=== PATIENT | female | born 1955 | race Asian ===

== ENCOUNTER 2020-07-06 11:51 | Inpatient (IN) | payer MEDICAID, SELFPAY ==
[2020-07-06] VITALS (19 sets, daily range): BP systolic 112–160; BP diastolic 72–120; PULSE 114–149; RESP 23–38; TEMP 35.9–36.6; O2SAT 88–100; BMI 27.7
--- NOTE | ~2020-07-06 | XR_ITS ---
EXAMINATION: XR chest 1V portable INDICATION: Shortness of breath, congestive heart failure TECHNIQUE: Portable AP chest at 0601 hours COMPARISON: 07/06/2020 FINDINGS: A diffuse interstitial pattern persists but has improved. A small right pleural effusion velazquez s also resolved. Cardiomegaly is noted. There is no pneumothorax. IMPRESSION: 1. Cardiomegaly with improving pulmonary edema. Reviewed, dictated and finalized at location A. SIONS INSPECTOR
--- NOTE | ~2020-07-06 | XR_ITS ---
EXAMINATION: XR chest 1V portable INDICATION: Shortness of breath TECHNIQUE: Portable AP chest at 1215 hours COMPARISON: None available FINDINGS: There are patchy opacities throughout all lung zones. A small right pleural effusion is pre sent. The heart size is upper limits of normal for technique. No pneumothorax is identified. IMPRESSION: 1. Diffuse lung disease, consistent with pneumonia and/or atelectasis and/or pulmonary edema. 2. Small right pleural effusion. Reviewed, dictated and finalized at location A. OFABRICATION ENGINEER MANAGER IMPRESSION: 1. Diffuse lung disease, consistent with pneumonia and/or atelectasis and/or pu lmonary edema. 2. Small right pleural effusion.
--- NOTE | ~2020-07-06 | CT_ITS ---
EXAMINATION: CTA chest PE protocol DATE: 07/06/2020 13:02 INDICATION: Shortness of breath TECHNIQUE: Computed tomography (CT) pulmonary angiogram of the chest was performed with 100 mL Omnipa que-350 intravenous contrast. Additional 3D reconstructions utilizing coronal maximum intensity proje ction (MIP) were performed. Automated exposure control and iterative reconstruction technique were em ployed. The dose-length product was 236.92 mGy-cm. COMPARISON: None FINDINGS: Excellent contrast opacification of the pulmonary arteries. There is moderate streak artifact from de nse contrast in the superior vena cava and right atrium. Moderate diffuse motion artifact. Overall th is moderately decreases sensitivity and specificity in the subsegmental pulmonary arteries. No defini tive pulmonary embolism. Small to moderate right and very small left pleural effusions. There are sca ttered groundglass opacities throughout both lungs, some smooth septal line thickening with periphera l and apical predominance most consistent with mild pulmonary edema. Persistent compressive atelectas is in the dependent lower lobes, right greater than left and anteroinferior aspects of the lingula an d left lower and right middle lobes. Mild cardiomegaly. Atherosclerotic coronary artery calcific a cy st along the left anterior descending coronary artery. No pericardial effusion. No pathologically enl arged thoracic lymphadenopathy. Mild thoracic spondylosis with bridging osteophytes at multiple level s consistent with diffuse idiopathic skeletal hyperostosis (DISH). IMPRESSION: 1. No pulmonary embolism although sensitivity and specificity are moderately decreased in the subsegm ental pulmonary arteries due to some streak artifact and extensive motion artifact. 2. Likely congestive heart failure with cardiomegaly, mild pulmonary edema and small to moderate righ t and very small left pleural effusions. Differential includes less likely pneumonia. Reviewed, dictated and finalized at location A. ICAL FORCEPS FABRICATOR IMPRESSION: 1. No pulmonary embolism although sensitivity and specificity are moderately de creased in the subsegmental pulmonary arteries due to some streak artifact and extensive motion artifact. 2. Likely congestive heart failure with cardiomegaly, mild pulmonary edema and small to moderate right and very small left pleural effusions. Differential inc ludes less likely pneumonia.
--- NOTE | 2020-07-06 11:58 | ECG_ITS ---
Measurements Intervals [place] Rate: 146 P: 69 DC: 121 QRS: -28 QRSD: 101 T: 104 QT: 326 QTc: 509 Interpretive Statements SINUS TACHYCARDIA, POSSIBLE ATRIAL FLUTTER DELAYED PRECORDIAL R/S TRANSITION BORDERLINE ST-T WAVE ABNORMALITY- DIFFUSE LEADS BASELINE ARTIFACT- II, III, AVF, V4-V5 ABNORMAL ECG Electronically Signed On 07-06-2020 13:11:58 CREW FOREMAN by Sukhwinder Johnson D.O.
[2020-07-06 12:24] LABS: Basophils Absolute Auto 0.1 K/mm3 (0.0-0.1); Basophils Percent Auto 0.6 % (0.2-1.2); Eosinophils Absolute Auto 0.2 K/mm3 (0-0.3); Eosinophils Percent Auto 2.3 % (0-4.4); Hematocrit 41.3 % (37.0-47.0); Hemoglobin 13.3 g/dL (12.0-15.0); Immature Granulocyte Absolute 0.03 K/mm3 (0.00-0.031); Immature Granulocyte Percent A 0.3 % (0-0.5); Lymphocytes Absolute Auto 3.18 K/mm3 (0.9-3.2); Lymphocytes Percent Auto 30.5 % (18.3-44.2); Mean Corpuscular HGB Conc 32.2 g/dl (32-36); Mean Corpuscular Hemoglobin 28.7 pg (26-34); Mean Corpuscular Volume 89.2 fl (80-100); Mean Platelet Volume 10.9 fl (7.4-10.4); Monocytes Absolute Auto 0.6 K/mm3 (0.1-0.6); Monocytes Percent Auto 5.9 % (2.6-8.5); Neutrophils Absolute Auto 6.3 K/mm3 (1.3-6.7); Neutrophils Percent Auto 60.4 % (45.5-73.1); Platelet Count Result 411 k/mm3 (150-375); Red Blood Count 4.63 M/mm3 (4.2-5.4); Red Cell Distribution Width 12.5 % (11.5-14.5); White Blood Count 10.4 K/mm3 (4.5-10.0)
[2020-07-06] MEDS: SODIUM CHLORIDE 0.9% IV 1,000 ML 999 ML IV CONT (12:24)
[2020-07-06 12:28] LABS: Alveolar/Arterial O2 Gradient 45.2 mmHg; Base Excess ABG -3.1 mEq/l (+/-2.0); Carboxyhemoglobin 0.9 % THb (0-2.0); Fractional Inspired Oxygen 21 %; Methemoglobin ABG 0.3 %THb (0-1.5); Oxygen Content ABG 17.1 %vol (16.0-22.0); Oxygen Saturation ABG 88.7 % (95.0-100.0); Oxyhemoglobin 87.2 % THb (90.0-100.0); PCO2 ABG 39.7 mmHg (35.0-45.0); PO2 FiO2 Ratio Arterial Blood 2.71 %; Reduced Hemoglobin 11.6 %THb (0-5.0); pH ABG 7.361 (7.350-7.450)
[2020-07-06 12:29] LABS: Device ROOM AIR; Modified Allen's Test Pass; Site Drawn LEFT RADIAL
--- NOTE | 2020-07-06 12:34 | PC.NURSE ---
Addendum entered by Griselda Henderson RN 07/06/20 14:52: patients home phone number is [phone] per Gabby, family friend. Original Note: patient's hoe phone number to contact: [phone] - Gabby, family friend
[2020-07-06 12:35] LABS: Prothrombin Time 13.8 Seconds (11.1-14.7)
[2020-07-06 12:36] LABS: Partial Thromboplastin Time 32.8 SECONDS (22.3-36.8)
[2020-07-06 12:37] LABS: Anion Gap 8 mmol/L (8-16); Blood Urea Nitrogen 14 mg/dL (7-17); Carbon Dioxide 27 mmol/L (22-30); Chloride 105 mmol/L (98-107); Estimated CRCL calculation 57 ml/min; Estimated Glomerular Filt Rate > 60; Glucose 119 mg/dL (65-105); Potassium 3.7 mmol/L (3.4-5.0); Sodium 140 mmol/L (137-145)
[2020-07-06 12:38] LABS: D Dimer 0.73 ug/mL (<0.48)
[2020-07-06 12:38] LABS: Lactic Acid Reflex 2.4 mmol/L (0.7-2.1)
--- NOTE | 2020-07-06 12:48 | PC.NURSE ---
Pt taken to CT scan on bypap and monitors.
--- NOTE | 2020-07-06 13:06 | ED.GENADULT ---
HPI - General Adult General Chief complaint: Shortness of Breath/Dyspnea Stated complaint: cough, sob Time Seen by Provider: 07/06/20 12:04 Source: patient and family Mode of arrival: ambulatory Limitations: no limitations History of Present Illness HPI narrative: Patient is a 65-year-old female who presents to emergency department with shortness of breath and difficulty breathing noting that she has had a slight cough for 5 days and some congestion patient notes a few days prior to the onset of her symptoms she had received her first Covid vaccine patient on arrival presents uncomfortable state with respiratory distress patient is tachypneic and having difficulty getting deep breaths patient denies similar occurrence in the past sick contacts patient denies any history of cardiopulmonary disease denies tobacco abuse or secondhand exposure patient has not taken anything other than [id number] medications with minimal improvement Related Data Home Medications Medication Instructions Recorded Confirmed No Home Medications 07/06/20 07/06/20 Allergies Allergy/AdvReac Type Severity Reaction Status Date / Time No Known Allergies Allergy Verified 07/06/20 12:03 Review of Systems Review of Systems: All systems reviewed & are unremarkable except as noted in HPI and below PMFSH Social History Social History Smoking status: Never smoker Exam Narrative: Exam Narrative: GENERAL: Ill-appearing, well-nourished, and in no acute distress. HEAD: Normocephalic, atraumatic. EYES: PERRLA and EOMI. ENT: Nares clear, no rhinorrhea or epistaxis. Mucous membranes moist. NECK: Supple. No adenopathy or masses. No carotid bruits or JVD CHEST: Diminished on auscultation. Respiratory distress. Crackles in the lung bases diminished in the upper yao HEART: Tachycardic rate and regular rhythm. No murmur heard. Normal peripheral pulses. ABDOMEN: Soft, nontender, nondistended EXTREMITIES: Normal range of motion. No edema. SKIN: Warm, dry, no rash. NEURO: No focal deficits. Alert and oriented x3. Cranial nerves II through XII grossly intact PSYCH: Normal mood and affect. Course Course Emergency Course: Patient evaluated in the emergency department is felt that the findings are likely congestive heart failure in nature given the cardiomegaly and congestive findings patient will be placed into the hospitalist service in the IMU. Patient has had improvement on BiPAP and will be left on BiPAP at this time. Patient was given Lasix in the emergency department. Patient agrees with this plan and is resting comfortably is noted no distress with improvement Consultations Consultation #1: Discussed case with hospitalist Deborah who has agreed to accept the patient Date: 07/06/20 Time: 13:55 Vital Signs Vital signs: Vital Signs Temperature 97.9 F 07/06/20 11:59 Pulse Rate 147 H 07/06/20 11:59 Respiratory Rate 38 H 07/06/20 11:59 Blood Pressure 160/113 H 07/06/20 11:59 Pulse Oximetry 98 07/06/20 11:59 Temperature 97.9 F 07/06/20 11:59 Pulse Rate 127 H 07/06/20 13:51 Respiratory Rate 30 H 07/06/20 13:51 Blood Pressure 129/84 07/06/20 13:51 Pulse Oximetry 99 07/06/20 13:51 Medical Decision Making Vital Signs Vital Signs: Vital Signs Temperature 97.9 F 07/06/20 11:59 Pulse Rate 147 H 07/06/20 11:59 Respiratory Rate 38 H 07/06/20 11:59 Blood Pressure 160/113 H 07/06/20 11:59 Pulse Oximetry 98 07/06/20 11:59 Temperature 97.9 F 07/06/20 11:59 Pulse Rate 127 H 07/06/20 13:51 Respiratory Rate 30 H 07/06/20 13:51 Blood Pressure 129/84 07/06/20 13:51 Pulse Oximetry 99 07/06/20 13:51 Lab Data Result diagrams: 07/06/20 12:05 07/06/20 12:05 Labs: Lab Results 07/06/20 07/06/20 07/06/20 Range/Units 12:05 12:05 12:05 WBC 10.4 H (4.5-10.0) K/mm3 RBC 4.63 (4.2-5.4) M/mm3 Hgb 13.3
[2020-07-06 13:16] LABS: Troponin I < 0.012 ng/mL (0.000-0.034)
[2020-07-06] MEDS: FUROSEMIDE INJ 40 MG/4 ML VIAL IV PUSH (13:51)
--- NOTE | 2020-07-06 14:59 | PC.NURSE ---
Aries Chapin from lab here to draw 2nd set of Blood cultures - multiple staff, 4, have attempted, unsuccessful
[2020-07-06 15:19] LABS: Reflex Lactic Acid Yes or No Add Lactic
[2020-07-06 15:36] LABS: Add Urine Microscopic? YES; Appearance Urine Clear (Clear); Bilirubin Urine Negative (Negative); Blood Urine 1+ (Negative); Color Urine Colorless (Yellow); Glucose Urine UA Negative (Negative); Ketones Urine Negative (Negative); Leukocyte Esterase Ur Negative LEU/UL (Negative); Mucus Urine Rare /lpf; Nitrate Urine Negative (Negative); Protein Urine Negative (Negative); Squamous Epithelial Cell Urine Occasional /hpf (Few); Urobilinogen Urine Negative mg/dL (<2.0); WBC Urine 0-3 /hpf
[2020-07-06 15:41] LABS: Troponin I 0.013 ng/mL (0.000-0.034)
--- NOTE | 2020-07-06 17:40 | ADMGEN ---
This patient, Melecio Thao, was admitted to Intensive Care Unit-4. Patient/family oriented to hospital policies and general routines including ID bracelet, bed and alarms, visiting hours, pain management, procedures, bathroom and other care routines, personal items, smoking policy, room service/diet, and visiting hours. Information on how to activate the Rapid Response Team has been discussed. Patient/Family are encouraged to report perceived risks to care and to ask questions if they do not understand what they are told or what they should do.
[2020-07-06 19:41] LABS: SARS-CoV-2 RNA PCR Negative
[2020-07-06 20:31] LABS: Troponin I 0.017 ng/mL (0.000-0.034)
--- NOTE | 2020-07-06 22:14 | ECG_ITS ---
Measurements Intervals [place] Rate: 125 P: 85 DC: 146 QRS: -13 QRSD: 105 T: 153 QT: 336 QTc: 485 Interpretive Statements SINUS TACHYCARDIA DELAYED PRECORDIAL R/S TRANSITION NONSPECIFIC T-WAVE ABNORMALITY- DIFFUSE LEADS ABNORMAL ECG Electronically Signed On 07-07-2020 7:13:51 AUDIO VIDEO MECHANIC by Sukhwinder Johnson D.O.
--- NOTE | 2020-07-06 22:18 | PM.IMHP ---
H&P: HPI History of Present Illness Date/Time: 07/06/20 22:18 Chief Complaint: shortness of breath over the past few days Narrative: This is a pleasant 65 year old female who is only known to have hyperlipidemia and hasn't seen any physicians in several years and now presented to the ER today with a complaint of increased shortness of breath for the past 5 days. She has also had a mild nonproductive cough. Yesterday she experienced midsternal chest tightness but today she hasn't had any chest pain. The patient denies any fevers, chills, abdominal pain, dysuria, hematuria, diarrhea, nausea, vomiting, or rectal bleeding. She also denies any LE swelling. The patient was evaluated in the ER today and found to be COVID-19 negative. The patient was found to be hypoxic with increased work of breathing in the ER and was initiated on Bipap. Lactic acid was elevated at 2.4. CTA chest was performed which demonstrated mild pulmonary edema. On my encounter with the patient she states she is feeling much better now. Review of Systems Review of Systems: All systems reviewed & are unremarkable except as noted in HPI and below PMFSH Past Medical History Medical History (Updated 07/07/20 @ 06:06 by Taco Mckenna MD) Hyperlipidemia Social History Social History Smoking status: Never smoker Second hand tobacco smoke exposure: No Alcohol intake: never Substance use: never Substance use type: does not use Gender identity (if verbalized by the patient): Female Spiritual care concerns: No Comments Past surgical and family medical histories are reviewed and are noncontributory. Meds Home Medications and Allergies Home Medications Medication Instructions Recorded Confirmed Type No Home Medications 07/06/20 07/06/20 History Allergies Allergy/AdvReac Type Severity Reaction Status Date / Time No Known Allergies Allergy Verified 07/06/20 12:03 Vital Signs Vital Signs - 24 hr 07/06/20 11:59 07/06/20 12:09 07/06/20 12:15 Temperature 36.6 C Pulse Rate 147 H 146 H 149 H Respiratory Rate 38 H 38 H 37 H Blood Pressure 160/113 H Pulse Oximetry 98 95 95 07/06/20 12:21 07/06/20 12:27 07/06/20 12:41 Temperature Pulse Rate 149 H 141 H Respiratory Rate 36 H 33 H Blood Pressure 152/120 H Pulse Oximetry 91 88 L 100 07/06/20 13:15 07/06/20 13:51 07/06/20 14:40 Temperature Pulse Rate 135 H 127 H 123 H Respiratory Rate 28 H 30 H 28 H Blood Pressure 156/98 H 129/84 129/102 H Pulse Oximetry 99 99 97 07/06/20 15:30 07/06/20 16:30 07/06/20 17:23 Temperature Pulse Rate 126 H 117 H 131 H Respiratory Rate 26 H 28 H 33 H Blood Pressure 118/77 113/74 Pulse Oximetry 98 99 100 07/06/20 17:33 07/06/20 17:36 07/06/20 18:00 Temperature 36.4 C Pulse Rate 125 H 125 H 114 H Respiratory Rate 25 H 23 H Blood Pressure 125/86 123/77 Pulse Oximetry 100 95 07/06/20 20:00 07/06/20 21:24 07/06/20 21:45 Temperature 35.9 C L Pulse Rate 123 H 128 H Respiratory Rate 25 H 28 H Blood Pressure 120/95 H Pulse Oximetry 100 100 99 Exam Const: General: cooperative, alert, awake and ill appearing Nutritional Appearance: overweight Orientation/consciousness: patient oriented x3 HENMT: Head: normal to inspection General nose exam: Normal external nose present Face and sinus: normal facial exam Mouth: Yes Normal oral and palatal mucosa present and Yes oropharynx normal Eyes: Pupils: Equal, round and reactive pupils present EOM: EOMs intact bilaterally Neck: Neck: supple and no JVD Thyroid: thyroid normal Lymphatic: lymphadenopathy not noted Resp: Effort & Inspection: tachypneic Auscultation: crackles bilateral and diffuse and diminished lung sounds Cardio: Rate: tachycardic Rhythm: regular rhythm Heart sounds: no murmurs GI: Inspection: normal to inspection Auscultation: normal bowel sounds Skin: General skin exam: normal
[2020-07-07] VITALS (14 sets, daily range): BP systolic 92–122; BP diastolic 64–83; PULSE 108–140; RESP 20–32; TEMP 35.7–36.8; O2SAT 96–100
[2020-07-07 04:45] LABS: Basophils Percent Auto 0.5 % (0.2-1.2); Eosinophils Absolute Auto 0.3 K/mm3 (0-0.3); Hematocrit 38.7 % (37.0-47.0); Hemoglobin 12.6 g/dL (12.0-15.0); Immature Granulocyte Absolute 0.02 K/mm3 (0.00-0.031); Immature Granulocyte Percent A 0.2 % (0-0.5); Lymphocytes Absolute Auto 2.63 K/mm3 (0.9-3.2); Lymphocytes Percent Auto 30.3 % (18.3-44.2); Mean Corpuscular HGB Conc 32.6 g/dl (32-36); Mean Platelet Volume 10.7 fl (7.4-10.4); Monocytes Absolute Auto 0.8 K/mm3 (0.1-0.6); Monocytes Percent Auto 9.1 % (2.6-8.5); Neutrophils Absolute Auto 4.9 K/mm3 (1.3-6.7); Neutrophils Percent Auto 56.9 % (45.5-73.1); Platelet Count Result 310 k/mm3 (150-375); Red Blood Count 4.35 M/mm3 (4.2-5.4); Red Cell Distribution Width 12.5 % (11.5-14.5); White Blood Count 8.7 K/mm3 (4.5-10.0)
[2020-07-07 05:01] LABS: Anion Gap 7 mmol/L (8-16); Blood Urea Nitrogen 14 mg/dL (7-17); Carbon Dioxide 29 mmol/L (22-30); Chloride 106 mmol/L (98-107); Estimated CRCL calculation 57 ml/min; Estimated Glomerular Filt Rate > 60; Glucose 95 mg/dL (65-105); Potassium 3.5 mmol/L (3.4-5.0); Sodium 142 mmol/L (137-145)
--- NOTE | 2020-07-07 06:00 | ECHO_ITS ---
Patient Info Name: Melecio Thao Age: 65 years : 1955 Gender: Female Ht: 60 in Wt: 140 lbs BSA: 1.66 m2 HR: 132 bpm BP: 109 / 83 mmHg Heart Rhythm: Tachycardia Technical Quality: Good Exam Date: 07/07/2020 10:13 AM Exam Location: [facility] Patient Status: Outpatient Admit Date: 07/06/2020 Staff Ordering Physician: Tone Lawrence PA-C [place] Guide: Lai Davila RDCS, RT Attending Provider: Kenneth Dykes MD Referring Physician: Matt Jett MD; Exam Type: CA echo doppler color flow Study Info Indications I50.9 - Heart failure, unspecified Complete two-dimensional, color flow and Doppler transthoracic echocardiogram is performed. Strain analysis performed. Summary 1. Complete two-dimensional, color flow and Doppler transthoracic echocardiogram is performed. 2. Strain analysis performed. 3. Left ventricular chamber dimension is mildly enlarged. 4. Left ventricular systolic function is severely reduced, estimated at 15-20%. 5. There is mildly increased left ventricular wall thickness. 6. The left ventricular diastolic function is abnormal. 7. Global longitudinal strain is abnormal at -7 %. 8. Left atrial chamber dimension is moderately enlarged. 9. There is moderate aortic valve stenosis with a peak velocity of 286 cm/s, mean gradient of 20 mmHg, and aortic valve area of 1.2 cm2. 10. There is moderate aortic valve calcification. 11. There is moderate mitral valve regurgitation. 12. There is mild tricuspid valve regurgitation. Left Ventricle Left ventricular chamber dimension is mildly enlarged. Left ventricular systolic function is severely reduced, estimated at 15-20%. There is mildly increased left ventricular wall thickness. The left ventricular diastolic function is abnormal. Global longitudinal strain is abnormal at -7 %. Right Ventricle Right ventricular chamber dimension is normal. Right ventricular systolic function is normal. Left Atria Left atrial chamber dimension is moderately enlarged. Right Atria Right atrial chamber dimension is normal. Atrial Septum Intact interatrial septum visualized by color flow imaging. Aortic Valve The aortic valve is trileaflet. There is moderate aortic valve stenosis with a peak velocity of 286 cm/s, mean gradient of 20 mmHg, and aortic valve area of 1.2 cm2. There is trace aortic valve regurgitation. There is moderate aortic valve calcification. Pulmonic Valve The pulmonic valve is normal. There is no pulmonic valve stenosis. There is trace pulmonic regurgitation. Mitral Valve The mitral valve has thickened leaflets. There is no mitral valve stenosis. There is moderate mitral valve regurgitation. Tricuspid Valve The tricuspid valve leaflets are normal. There is no significant tricuspid valve stenosis. There is mild tricuspid valve regurgitation. Pericardium/Pleural The pericardium appears normal. There is no pericardial effusion. Inferior Vena Cava Normal inferior vena cava with >50% collapse upon inspiration consistent with normal right atrial pressure, 5 mmHg. Aorta The aortic root size at the sinus of Valsalva is normal. The prox ascending aorta size is normal. Left Ventricular Outflow Tract Name Value Normal LVOT 2D
[2020-07-07] MEDS: FUROSEMIDE INJ 40 MG/4 ML VIAL IV PUSH (08:44)
[2020-07-07] MEDS: ENOXAPARIN 40 MG/0.4 ML SYRINGE SUB-Q (08:44)
--- NOTE | 2020-07-07 09:30 | PC.NURSE ---
Reviewed plan of care with patient. Patient stated ok to talk to Mona, patient's next of kin.
[2020-07-07] MEDS: POTASSIUM CHLORIDE 20 MEQ TABLET 40 MEQ PO (09:47)
--- NOTE | 2020-07-07 15:52 | PM.IMPN ---
Progress Note: A&P Assessment and Plan (1) Acute respiratory failure with hypoxemia: Code(s): J96.01 - Acute respiratory failure with hypoxia Status: Acute Assessment and Plan: The patient has been initiated on Bipap in the ER. Admit to IMU. Wean off of Bipap when possible. Continue oxygen supplementation to maintain pulse ox>95%. Acute respiratory failure appears to be secondary to acute CHF exacerbation. Continue treatment for acute CHF. RT assess and treat. 07/07/20 15:52 Patient is 65-year-old female who has not seen the physician and several year presented to emergency department with a complaint of shortness of breath and hypoxic patient was placed on BiPAP, CT of the chest showed no pulmonary emboli but showed congestive heart failure with cardiomegaly, patient was diuresed with IV Lasix, currently patient states feeling much better she is off BiPAP, on nasal cannula 4 L oxygen, cardiac echo showed severe systolic dysfunction with ejection fraction of 20% unclear ischemic or nonischemic cardiomyopathy, will consult radiological metallurgist further recommendation (2) Congestive heart failure: Qualifiers: Heart failure chronicity: acute Heart failure type: unspecified Qualified Code(s): I50.9 - Heart failure, unspecified Code(s): I50.9 - Heart failure, unspecified Status: Acute Assessment and Plan: Newly diagnosed CHF. sodium prudent, fluid restricted diet. Is and Os, daily weights. CHF teaching. Continue IV lasix. Monitor urine output. TSH w/ reflex T4, Echocardiogram in am. (3) Sinus tachycardia: Code(s): R00.0 - Tachycardia, unspecified Status: Acute Assessment and Plan: Likely compensatory from acute respiratory failure. We will continue to monitor on telemetry. We will consider rate controlling medications if the patient sustains HR >120 bpm as this may lead to worsening pulmonary edema. (4) Elevated lactic acid level: Code(s): R79.89 - Other specified abnormal findings of blood chemistry Status: Acute Assessment and Plan: Likely secondary to hypoperfusion from acute CHF. Check reflex lactic acid. monitor acid-base status. (5) Hyperlipidemia: Qualifiers: Hyperlipidemia type: unspecified Qualified Code(s): E78.5 - Hyperlipidemia, unspecified Code(s): E78.5 - Hyperlipidemia, unspecified Status: Chronic Assessment and Plan: Continue fish oil. Subjective Date/time seen: 07/07/20 15:52 Patient is 65-year-old female who has not seen the physician and several year presented to emergency department with a complaint of shortness of breath and hypoxic patient was placed on BiPAP, CT of the chest showed no pulmonary emboli but showed congestive heart failure with cardiomegaly, patient was diuresed with IV Lasix, currently patient states feeling much better she is off BiPAP, on nasal cannula 4 L oxygen, cardiac echo showed severe systolic dysfunction with ejection fraction of 20% unclear ischemic or nonischemic cardiomyopathy, will consult radiological metallurgist further recommendation Review of Systems Review of Systems: All systems reviewed & are unremarkable except as noted in HPI and below Exam Narrative: Exam Narrative: Patient is comfortable, NAD HEENT: eyes are clear and none icteric LUNGS: Bilateral fair air entry with rales and rhonchi HEART: RR S1S2 ABD: BS+, Soft and nontender Lower extremities: no edema SKIN: nonjaundiced Neuro: grossly intact. Objective Data Vital Signs Vital Signs: Vital Signs - 24 hr 07/06/20 16:30 07/06/20 17:23 07/06/20 17:33 Temperature Pulse Rate 117 H 131 H 125 H Respiratory Rate 28 H 33 H Blood Pressure 113/74 Pulse Oximetry 99 100 07/06/20 17:36 07/06/20 18:00 07/06/20 20:00 Temperature 97.6 F 96.7 F L Pulse Rate 125 H 114 H 124 H Respiratory Rate 25 H 23 H 25 H Blood Pressure 125/86 123/77 120/95 H Pulse Oximetry 100 95 100 07/06/20 21:24 07/06/20 21:45
--- NOTE | 2020-07-07 17:25 | PM.CNCAR ---
Assessment and Plan Assessment and plan (1) Congestive heart failure: Qualifiers: Heart failure chronicity: acute Heart failure type: unspecified Qualified Code(s): I50.9 - Heart failure, unspecified Code(s): I50.9 - Heart failure, unspecified Status: Acute Assessment and Plan: New onset acute systolic congestive heart failure: Uncertain etiology. Ischemic versus nonischemic. Will initiate low-dose metoprolol 6.25 mg p.o. b.i.d. as well as low-dose lisinopril 2.5 mg p.o. daily. Continue IV furosemide. Will check a BNP, ferritin, HIV as an initial evaluation for nonischemic etiology. She also needs an ischemic workup and given the aortic stenosis, coronary angiogram/cardiac catheterization would be most appropriate. Will keep her NPO after midnight for cardiac catheterization. She may not be compensated enough to proceed with angiogram by tomorrow though. As blood pressure will allow, spironolactone should be added. (2) Cardiomyopathy: Code(s): I42.9 - Cardiomyopathy, unspecified Status: Acute Assessment and Plan: Uncertain etiology. (3) Aortic stenosis: Code(s): I35.0 - Nonrheumatic aortic (valve) stenosis Status: Acute Assessment and Plan: Moderate by echo (4) Hyperlipidemia: Qualifiers: Hyperlipidemia type: unspecified Qualified Code(s): E78.5 - Hyperlipidemia, unspecified Code(s): E78.5 - Hyperlipidemia, unspecified Status: Chronic Assessment and Plan: Will check lipid panel (5) Chest pain: Code(s): R07.9 - Chest pain, unspecified Status: Acute Assessment and Plan: CHF versus is angina. Will start low-dose aspirin 81 mg p.o. 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 She has a history of hyperlipidemia only. She has not seen physicians in several years. She came to the hospital though yesterday because of a relatively new onset of shortness of breath. She states she has been short of breath for about a month. This is progressively worsening especially over the past 5 days. She also had a nonproductive cough. She also describes paroxysmal nocturnal dyspnea. No edema though. She would also be dyspnea by doing minimal activity. She also describes paroxysmal nocturnal dyspnea stated above. She has been having some chest tightness also that occurs with exertion. She describes as a burning. She also has some back pain that does not necessarily occur at the same time as the chest discomfort. The tightness in her chest goes away with rest. It will last for a few minutes. Because of the symptoms she came to the hospital and was started on IV diuretics. She is breathing better. Echocardiogram though was performed showing a significantly and severely reduced ejection fraction. Cardiology consultation was therefore requested. She denies any syncope, presyncope. No palpitations. No family history of cardiomyopathy and she is aware of. One brother though dad at 44 from a myocardial infarction. Review of Systems Review of Systems: All systems reviewed & are unremarkable except as noted in HPI and below Constitutional: Constitutional: Reports weakness Eyes: Eyes: Denies blurry vision ENT: Reports Normal hearing present Cardiovascular: Cardiovascular: Reports chest pain Respiratory: Respiratory: Reports cough and Reports dyspnea Gastrointestinal: Gastrointestinal: Denies abdominal pain Genitourinary: Genitourinary: Denies flank pain Musculoskeletal: Musculoskeletal: Denies neck pain Integumentary/Breasts: Skin/Breast: Arnol
[2020-07-07 18:42] LABS: Cholesterol 217 mg/dL (0-200); HDL Direct 47 mg/dL; Triglycerides 257 mg/dL (<150)
[2020-07-07 18:53] LABS: NT Pro B Type Natriuretic Pept 1290 PG/ML (5-100)
[2020-07-07 18:53] LABS: LDL Cholesterol Direct 119 mg/dL
[2020-07-07 19:24] LABS: HIV 1/2 Ab P24 Ag Result Negative (Negative)
[2020-07-07] MEDS: METOPROLOL TARTRATE 6.25 MG TABLET PO (21:20)
[2020-07-08] VITALS (14 sets, daily range): BP systolic 91–112; BP diastolic 56–82; PULSE 65–131; RESP 12–22; TEMP 36.4–36.8; O2SAT 94–99
[2020-07-08 05:32] LABS: Hematocrit 38.7 % (37.0-47.0); Hemoglobin 12.2 g/dL (12.0-15.0); Mean Corpuscular HGB Conc 31.5 g/dl (32-36); Mean Corpuscular Hemoglobin 28.1 pg (26-34); Mean Corpuscular Volume 89.2 fl (80-100); Mean Platelet Volume 10.8 fl (7.4-10.4); Platelet Count Result 324 k/mm3 (150-375); Red Blood Count 4.34 M/mm3 (4.2-5.4); Red Cell Distribution Width 12.5 % (11.5-14.5); White Blood Count 6.8 K/mm3 (4.5-10.0)
[2020-07-08 05:45] LABS: Anion Gap 6 mmol/L (8-16); Blood Urea Nitrogen 20 mg/dL (7-17); Calcium 9.3 mg/dL (8.4-10.2); Carbon Dioxide 29 mmol/L (22-30); Chloride 107 mmol/L (98-107); Estimated CRCL calculation 66 ml/min; Estimated Glomerular Filt Rate > 60; Glucose 101 mg/dL (65-105); Potassium 3.8 mmol/L (3.4-5.0); Sodium 142 mmol/L (137-145)
[2020-07-08] MEDS: METOPROLOL TARTRATE 6.25 MG TABLET PO ×2 (07:53→21:57)
[2020-07-08] MEDS: ASPIRIN 81 MG ENTERIC TABLET PO (07:55)
[2020-07-08] MEDS: lisinopriL 2.5 MG TABLET PO (07:55)
--- NOTE | 2020-07-08 08:45 | PM.PNCARD ---
Progress Note: A&P Additional Plan 65-year-old woman with: Newly diagnosed dilated cardiomyopathy presenting with symptoms of dyspnea and overt congestive heart failure gradual onset. Medications initiated for this yesterday by Dr. Fernando including furosemide, low-dose metoprolol and low-dose lisinopril. She is symptomatic lead better today still has some pulmonary congestion on physical exam but was able to lie flat last night and sleep. I will add spironolactone to the regimen and her beta-leslee and MOE-inhibitor will be gradually titrated. She will be receiving the 1st dose of lisinopril this morning. When we are finished titrating medications she should be brought to the minilab operator for angiography. Echocardiogram according to the report did demonstrate some mild aortic valve stenosis but if that is accurate it is not the reason for her congestive heart failure. Valdemar Collins MD [facility] Subjective Date/time seen: Date of service: 07/08/20 08:45 Interval history: Follow-up visit in this 65-year-old lady with congestive heart failure found to have significant dilated cardiomyopathy by echo. Echo also demonstrates mild aortic valve stenosis. Patient feels well this morning asymptomatic. Says she slept last night in her bed without any positional dyspnea. Exam Const: General: comfortable and no acute distress HENMT: Mouth: Yes moist mucous membranes Eyes: Sclera: sclerae normal Pupils: Equal, round and reactive pupils present Neck: Neck: supple and no JVD Resp: Effort & Inspection: normal respiratory effort Other: Patient remains with scant bibasilar crackles. Cardio: Rate: regular rate and tachycardic Rhythm: regular rhythm Other: Summation gallop audible no murmur GI: GI Palp: Yes Soft to palpation Auscultation: normal bowel sounds Skin: General skin exam: normal color Neuro: Cognition (Neuro): normal cognition Extrem: General: normal to inspection Objective Data Vital Signs Vital Signs: Vital Signs - 24 hr 07/07/20 10:00 07/07/20 12:00 07/07/20 14:00 Temperature 35.9 C L Pulse Rate 129 H 133 H 130 H Respiratory Rate 30 H 32 H Blood Pressure 92/78 L Pulse Oximetry 98 99 07/07/20 16:00 07/07/20 18:00 07/07/20 20:00 Temperature 36.4 C 36.8 C Pulse Rate 132 H 135 H 140 H Respiratory Rate 25 H 23 H Blood Pressure 94/64 L 122/80 Pulse Oximetry 98 96 07/07/20 20:15 07/07/20 21:20 07/08/20 00:00 Temperature Pulse Rate 138 H 112 H Respiratory Rate 22 H Blood Pressure Pulse Oximetry 96 94 07/08/20 02:00 07/08/20 04:00 07/08/20 05:56 Temperature 36.8 C Pulse Rate 112 H 112 H 115 H Respiratory Rate 20 Blood Pressure 103/68 Pulse Oximetry 97 07/08/20 07:53 Temperature Pulse Rate 120 H Respiratory Rate Blood Pressure Pulse Oximetry Intake/Output Intake/Output: Intake & Output 07/05/20 07/06/20 07/07/20 07/08/20 23:59 23:59 23:59 23:59 Intake Total 200 1080 350 Output Total 1700 450 Balance 200 -620 -100 Meds/Results Medications: Active Medications Generic Name Dose Route Start Last Admin Trade Name Freq PRN Reason Stop Dose Admin Acetaminophen 650 mg 07/06/20 14:00 Acetaminophen 325 Mg Tablet PO Q4H PRN Mild Pain (1-3) Aspirin 81 mg 07/08/20 09:00 07/08/20 07:55 Aspirin 81 Mg Enteric Tablet PO 81 mg QAM DENNYS Administration Enoxaparin Sodium 40 mg 07/07/20 09:00 07/08/20 07:56 Enoxaparin 40 Mg/0.4 Ml Syringe SUB-Q Not Given DAILY DENNYS Furosemide 40 mg 07/07/20 09:00 07/08/20 07:57 Furosemide Inj 40 Mg/4 Ml Vial IV PUSH Not Given DAILY DENNYS Lisinopril 2.5 mg 07/08/20 09:00 07/08/20 07:55 Lisinopril 2.5 Mg Tablet PO 2.5 mg QAM DENNYS Administration Metoprolol Tartrate 6.25 mg 07/07/20 21:00 07/08/20 07:53 Metoprolol Tartrate 6.25 Mg Tablet PO 6.25 mg Q12HR DENNYS Administration Ondansetron HCl 4 mg 07/06/20 14:00 Ondansetron Inj 4 Mg/2 Ml Vial
--- NOTE | 2020-07-08 10:00 | PC.NURSE ---
Patient transferred to [facility]- via wheelchair without issue. Report given to DAYLIN Gonzalez prior to transfer.
[2020-07-08] MEDS: SPIRONOLACTONE 25 MG TABLET PO (14:23)
--- NOTE | 2020-07-08 14:34 | PM.IMPN ---
Progress Note: A&P Assessment and Plan (1) Acute respiratory failure with hypoxemia: Code(s): J96.01 - Acute respiratory failure with hypoxia Status: Acute Assessment and Plan: The patient has been initiated on Bipap in the ER. Admit to IMU. Wean off of Bipap when possible. Continue oxygen supplementation to maintain pulse ox>95%. Acute respiratory failure appears to be secondary to acute CHF exacerbation. Continue treatment for acute CHF. RT assess and treat. 07/08/20 14:34 Patient is 65-year-old female who has not seen the physician and several year presented to emergency department with a complaint of shortness of breath and hypoxic patient was placed on BiPAP, CT of the chest showed no pulmonary emboli but showed congestive heart failure with cardiomegaly, patient was diuresed with IV Lasix, currently patient states feeling much better she is off BiPAP, on nasal cannula 4 L oxygen, cardiac echo showed severe systolic dysfunction with ejection fraction of 20% unclear ischemic or nonischemic cardiomyopathy, will consult hvac project manager further recommendation 07/08 patient with severe systolic dysfunction with ejection fraction of 20% most likely patient acute on chronic systolic congestive heart failure, patient is being diuresed and was seen by Cardiology low-dose metoprolol, lisinopril and spironolactone was added, today patient states feeling much better not a short of breath as when she arrived, hvac project manager recommending cardiac catheterization once patient is clinically stable to further evaluate her cardiomyopathy ischemic or nonischemi, will have a PT OT evaluate the patient and further recommendation to follow. (2) Congestive heart failure: Qualifiers: Heart failure chronicity: acute Heart failure type: unspecified Qualified Code(s): I50.9 - Heart failure, unspecified Code(s): I50.9 - Heart failure, unspecified Status: Acute Assessment and Plan: Newly diagnosed CHF. sodium prudent, fluid restricted diet. Is and Os, daily weights. CHF teaching. Continue IV lasix. Monitor urine output. TSH w/ reflex T4, Echocardiogram in am. (3) Sinus tachycardia: Code(s): R00.0 - Tachycardia, unspecified Status: Acute Assessment and Plan: Likely compensatory from acute respiratory failure. We will continue to monitor on telemetry. We will consider rate controlling medications if the patient sustains HR >120 bpm as this may lead to worsening pulmonary edema. (4) Elevated lactic acid level: Code(s): R79.89 - Other specified abnormal findings of blood chemistry Status: Acute Assessment and Plan: Likely secondary to hypoperfusion from acute CHF. Check reflex lactic acid. monitor acid-base status. (5) Hyperlipidemia: Qualifiers: Hyperlipidemia type: unspecified Qualified Code(s): E78.5 - Hyperlipidemia, unspecified Code(s): E78.5 - Hyperlipidemia, unspecified Status: Chronic Assessment and Plan: Continue fish oil. Subjective Date/time seen: 07/08/20 14:34 Patient is 65-year-old female who has not seen the physician and several year presented to emergency department with a complaint of shortness of breath and hypoxic patient was placed on BiPAP, CT of the chest showed no pulmonary emboli but showed congestive heart failure with cardiomegaly, patient was diuresed with IV Lasix, currently patient states feeling much better she is off BiPAP, on nasal cannula 4 L oxygen, cardiac echo showed severe systolic dysfunction with ejection fraction of 20% unclear ischemic or nonischemic cardiomyopathy, will consult hvac project manager further recommendation 07/08 patient with severe systolic dysfunction with ejection fraction of 20% most likely patient acute on chronic systolic congestive heart failure, patient is being diuresed and was seen by Cardiology low-dose metoprolol, lisinopril and spironolactone was added, today patient states feeling much better not
[2020-07-09] VITALS (17 sets, daily range): BP systolic 92–108; BP diastolic 63–68; PULSE 110–128; RESP 16–20; TEMP 36–36.8; O2SAT 97–100
[2020-07-09 05:15] LABS: Hematocrit 36.7 % (37.0-47.0); Hemoglobin 11.7 g/dL (12.0-15.0); Mean Corpuscular HGB Conc 31.9 g/dl (32-36); Mean Corpuscular Volume 91.1 fl (80-100); Mean Platelet Volume 10.7 fl (7.4-10.4); Platelet Count Result 301 k/mm3 (150-375); Red Blood Count 4.03 M/mm3 (4.2-5.4); Red Cell Distribution Width 12.7 % (11.5-14.5)
[2020-07-09 05:29] LABS: Anion Gap 6 mmol/L (8-16); Blood Urea Nitrogen 21 mg/dL (7-17); Carbon Dioxide 27 mmol/L (22-30); Chloride 108 mmol/L (98-107); Estimated CRCL calculation 66 ml/min; Estimated Glomerular Filt Rate > 60; Glucose 98 mg/dL (65-105); Potassium 3.9 mmol/L (3.4-5.0); Sodium 141 mmol/L (137-145)
[2020-07-09] MEDS: METOPROLOL TARTRATE 6.25 MG TABLET PO ×2 (09:20→20:57)
[2020-07-09] MEDS: lisinopriL 2.5 MG TABLET PO (09:20)
[2020-07-09] MEDS: ENOXAPARIN 40 MG/0.4 ML SYRINGE SUB-Q (09:20)
[2020-07-09] MEDS: ASPIRIN 81 MG ENTERIC TABLET PO (09:20)
[2020-07-09] MEDS: SPIRONOLACTONE 25 MG TABLET PO (09:20)
[2020-07-09] MEDS: FUROSEMIDE INJ 40 MG/4 ML VIAL IV PUSH (09:20)
--- NOTE | 2020-07-09 13:08 | PM.IMPN ---
Progress Note: A&P Assessment and Plan (1) Acute respiratory failure with hypoxemia: Code(s): J96.01 - Acute respiratory failure with hypoxia Status: Acute Assessment and Plan: The patient has been initiated on Bipap in the ER. Admit to IMU. Wean off of Bipap when possible. Continue oxygen supplementation to maintain pulse ox>95%. Acute respiratory failure appears to be secondary to acute CHF exacerbation. Continue treatment for acute CHF. RT assess and treat. 07/09/20 13:08 Patient is 65-year-old female who has not seen the physician and several year presented to emergency department with a complaint of shortness of breath and hypoxic patient was placed on BiPAP, CT of the chest showed no pulmonary emboli but showed congestive heart failure with cardiomegaly, patient was diuresed with IV Lasix, currently patient states feeling much better she is off BiPAP, on nasal cannula 4 L oxygen, cardiac echo showed severe systolic dysfunction with ejection fraction of 20% unclear ischemic or nonischemic cardiomyopathy, will consult integration analyst further recommendation 07/08 patient with severe systolic dysfunction with ejection fraction of 20% most likely patient acute on chronic systolic congestive heart failure, patient is being diuresed and was seen by Cardiology low-dose metoprolol, lisinopril and spironolactone was added, today patient states feeling much better not a short of breath as when she arrived, integration analyst recommending cardiac catheterization once patient is clinically stable to further evaluate her cardiomyopathy ischemic or nonischemic, will have a PT OT evaluate the patient and further recommendation to follow. 07/09 patient remained clinically stable, states feeling much better not as short of breath, being diuresed, will be seen by integration analyst possibly have cardiac catheterization on Saturday will continue to monitor and further recommendation to follow. (2) Congestive heart failure: Qualifiers: Heart failure chronicity: acute Heart failure type: unspecified Qualified Code(s): I50.9 - Heart failure, unspecified Code(s): I50.9 - Heart failure, unspecified Status: Acute Assessment and Plan: Newly diagnosed CHF. sodium prudent, fluid restricted diet. Is and Os, daily weights. CHF teaching. Continue IV lasix. Monitor urine output. TSH w/ reflex T4, Echocardiogram in am. (3) Sinus tachycardia: Code(s): R00.0 - Tachycardia, unspecified Status: Acute Assessment and Plan: Likely compensatory from acute respiratory failure. We will continue to monitor on telemetry. We will consider rate controlling medications if the patient sustains HR >120 bpm as this may lead to worsening pulmonary edema. (4) Elevated lactic acid level: Code(s): R79.89 - Other specified abnormal findings of blood chemistry Status: Acute Assessment and Plan: Likely secondary to hypoperfusion from acute CHF. Check reflex lactic acid. monitor acid-base status. (5) Hyperlipidemia: Qualifiers: Hyperlipidemia type: unspecified Qualified Code(s): E78.5 - Hyperlipidemia, unspecified Code(s): E78.5 - Hyperlipidemia, unspecified Status: Chronic Assessment and Plan: Continue fish oil. Subjective Date/time seen: 07/09/20 13:08 Patient is 65-year-old female who has not seen the physician and several year presented to emergency department with a complaint of shortness of breath and hypoxic patient was placed on BiPAP, CT of the chest showed no pulmonary emboli but showed congestive heart failure with cardiomegaly, patient was diuresed with IV Lasix, currently patient states feeling much better she is off BiPAP, on nasal cannula 4 L oxygen, cardiac echo showed severe systolic dysfunction with ejection fraction of 20% unclear ischemic or nonischemic cardiomyopathy, will consult integration analyst further recommendation 07/08 patient with severe systolic dysfunction with eject
--- NOTE | 2020-07-09 16:49 | PM.PNCARD ---
Progress Note: A&P Assessment and Plan (1) Congestive heart failure: Qualifiers: Heart failure chronicity: acute Heart failure type: unspecified Qualified Code(s): I50.9 - Heart failure, unspecified Code(s): I50.9 - Heart failure, unspecified Status: Acute Assessment and Plan: New onset acute systolic congestive heart failure: Uncertain etiology. Ischemic versus (probably) nonischemic. Started on metoprolol, lisinopril, and spironolactone. Continue IV furosemide. Therapy is limited by her low blood pressure. Eventually may switch her to Entresto. Remains decompensated with a gallop rhythm and tachycardia but clinically much improved and appears euvolemic. Will check a chest x-ray to evaluate for residual pleural effusions etc, possibly change to po diuretic tmr. Ferritin and HIV normal. She also needs an ischemic workup and given the aortic stenosis, coronary angiogram/cardiac catheterization would be most appropriate. Pt prefers to have the cath done prior to discharge; Aim for cardiac catheterization Saturday. (2) Cardiomyopathy: Code(s): I42.9 - Cardiomyopathy, unspecified Status: Acute Assessment and Plan: Uncertain etiology. (3) Aortic stenosis: Code(s): I35.0 - Nonrheumatic aortic (valve) stenosis Status: Acute Assessment and Plan: Moderate calcification by echo. Moderate by echo, though with this degree of left ventricular dysfunction not much of a gradient can be generated. (4) Hyperlipidemia: Qualifiers: Hyperlipidemia type: unspecified Qualified Code(s): E78.5 - Hyperlipidemia, unspecified Code(s): E78.5 - Hyperlipidemia, unspecified Status: Chronic Assessment and Plan: LDL cholesterol 119. (5) Chest pain: Code(s): R07.9 - Chest pain, unspecified Status: Acute Assessment and Plan: CHF versus is angina. Aspirin 81 mg p.o. daily Cardiac cath on Saturday, if she appears in reasonable shape; otherwise later as OPT. Probably discharge Saturday after the catheterization. Subjective Date/time seen: 07/09/20 16:49 Interval history: Follow-up visit in this 65-year-old lady with congestive heart failure found to have significant dilated cardiomyopathy by echo, EF 15-20%. Echo also demonstrates mild aortic valve stenosis. With a 20 mm gradient but an AUR[facility]A 1.2 cm2. 07/08/2020: Patient feels well this morning asymptomatic. Says she slept last night in her bed without any positional dyspnea. Added spironolactone. Date of service 07/09/2020: Feeling good, close to normal, able to walk to the bathroom with no shortness of breath or dizziness. No PND orthopnea. Has diuresed 600 cc so far today. Systolic BP running 92 - 108 mmHg. Remains tachycardic with heart rates in the 120s, sinus tachycardia with infrequent PVCs. Review of Systems Constitutional: Constitutional: Reports no additional constitutional complaints Eyes: Eyes: Reports no additional eye complaints ENT: Denies epistaxis Cardiovascular: Cardiovascular: Denies chest pain, Denies pedal edema, Denies leg edema, Denies lightheadedness and Denies palpitations Respiratory: Respiratory: Denies cough, Denies dyspnea and Denies dyspnea on exertion Gastrointestinal: Gastrointestinal: Denies abdominal pain Genitourinary: Genitourinary: Denies hematuria Musculoskeletal: Musculoskeletal: Reports no additional musculoskeletal complaints Integumentary/Breasts: Skin/Breast: Denies rash Neurolo
[2020-07-10] VITALS (18 sets, daily range): BP systolic 92–109; BP diastolic 61–82; PULSE 108–130; RESP 16–22; TEMP 36.1–36.6; O2SAT 96–100
[2020-07-10 05:10] LABS: Hematocrit 35.5 % (37.0-47.0); Hemoglobin 11.6 g/dL (12.0-15.0); Mean Corpuscular HGB Conc 32.7 g/dl (32-36); Mean Corpuscular Hemoglobin 29.2 pg (26-34); Mean Corpuscular Volume 89.4 fl (80-100); Mean Platelet Volume 10.8 fl (7.4-10.4); Platelet Count Result 292 k/mm3 (150-375); Red Blood Count 3.97 M/mm3 (4.2-5.4); Red Cell Distribution Width 12.4 % (11.5-14.5); White Blood Count 7.3 K/mm3 (4.5-10.0)
[2020-07-10 05:26] LABS: Anion Gap 8 mmol/L (8-16); Blood Urea Nitrogen 25 mg/dL (7-17); Calcium 8.7 mg/dL (8.4-10.2); Carbon Dioxide 27 mmol/L (22-30); Chloride 104 mmol/L (98-107); Estimated CRCL calculation 51 ml/min; Estimated Glomerular Filt Rate > 60; Glucose 96 mg/dL (65-105); Potassium 3.9 mmol/L (3.4-5.0); Sodium 139 mmol/L (137-145)
[2020-07-10] MEDS: lisinopriL 2.5 MG TABLET PO (09:00)
[2020-07-10] MEDS: METOPROLOL TARTRATE 6.25 MG TABLET PO ×2 (09:00→20:58)
[2020-07-10] MEDS: FUROSEMIDE INJ 40 MG/4 ML VIAL IV PUSH (09:00)
[2020-07-10] MEDS: SPIRONOLACTONE 25 MG TABLET PO (09:00)
[2020-07-10] MEDS: ASPIRIN 81 MG ENTERIC TABLET PO (09:00)
[2020-07-10] MEDS: ENOXAPARIN 40 MG/0.4 ML SYRINGE SUB-Q (09:01)
--- NOTE | 2020-07-10 10:39 | PM.IMPN ---
Progress Note: A&P Assessment and Plan (1) Acute respiratory failure with hypoxemia: Code(s): J96.01 - Acute respiratory failure with hypoxia Status: Acute Assessment and Plan: The patient has been initiated on Bipap in the ER. Admit to IMU. Wean off of Bipap when possible. Continue oxygen supplementation to maintain pulse ox>95%. Acute respiratory failure appears to be secondary to acute CHF exacerbation. Continue treatment for acute CHF. RT assess and treat. 07/10/20 10:39 Patient is 65-year-old female who has not seen the physician and several year presented to emergency department with a complaint of shortness of breath and hypoxic patient was placed on BiPAP, CT of the chest showed no pulmonary emboli but showed congestive heart failure with cardiomegaly, patient was diuresed with IV Lasix, currently patient states feeling much better she is off BiPAP, on nasal cannula 4 L oxygen, cardiac echo showed severe systolic dysfunction with ejection fraction of 20% unclear ischemic or nonischemic cardiomyopathy, will consult pile driver operator barge mounted further recommendation 07/08 patient with severe systolic dysfunction with ejection fraction of 20% most likely patient acute on chronic systolic congestive heart failure, patient is being diuresed and was seen by Cardiology low-dose metoprolol, lisinopril and spironolactone was added, today patient states feeling much better not a short of breath as when she arrived, pile driver operator barge mounted recommending cardiac catheterization once patient is clinically stable to further evaluate her cardiomyopathy ischemic or nonischemic, will have a PT OT evaluate the patient and further recommendation to follow. 07/09 patient remained clinically stable, states feeling much better not as short of breath, being diuresed, will be seen by pile driver operator barge mounted possibly have cardiac catheterization on Saturday will continue to monitor and further recommendation to follow. 07/10 patient remained clinically stable, sitting side of the bed, states feeling much better not as short of breath, being diuresed, seen by pile driver operator barge mounted possibly will have cardiac catheterization on Saturday will continue to monitor and further recommendation to follow. (2) Congestive heart failure: Qualifiers: Heart failure chronicity: acute Heart failure type: unspecified Qualified Code(s): I50.9 - Heart failure, unspecified Code(s): I50.9 - Heart failure, unspecified Status: Acute Assessment and Plan: Newly diagnosed CHF. sodium prudent, fluid restricted diet. Is and Os, daily weights. CHF teaching. Continue IV lasix. Monitor urine output. TSH w/ reflex T4, Echocardiogram in am. (3) Sinus tachycardia: Code(s): R00.0 - Tachycardia, unspecified Status: Acute Assessment and Plan: Likely compensatory from acute respiratory failure. We will continue to monitor on telemetry. We will consider rate controlling medications if the patient sustains HR >120 bpm as this may lead to worsening pulmonary edema. (4) Elevated lactic acid level: Code(s): R79.89 - Other specified abnormal findings of blood chemistry Status: Acute Assessment and Plan: Likely secondary to hypoperfusion from acute CHF. Check reflex lactic acid. monitor acid-base status. (5) Hyperlipidemia: Qualifiers: Hyperlipidemia type: unspecified Qualified Code(s): E78.5 - Hyperlipidemia, unspecified Code(s): E78.5 - Hyperlipidemia, unspecified Status: Chronic Assessment and Plan: Continue fish oil. Subjective Date/time seen: 07/10/20 10:39 Patient is 65-year-old female who has not seen the physician and several year presented to emergency department with a complaint of shortness of breath and hypoxic patient was placed on BiPAP, CT of the chest showed no pulmonary emboli but showed congestive heart failure with cardiomegaly, patient was diuresed with IV Lasix, currently patient states feeling much better she
--- NOTE | 2020-07-10 11:51 | PM.PNCARD ---
Progress Note: A&P Assessment and Plan (1) Congestive heart failure: Qualifiers: Heart failure chronicity: acute Heart failure type: unspecified Qualified Code(s): I50.9 - Heart failure, unspecified Code(s): I50.9 - Heart failure, unspecified Status: Acute Assessment and Plan: New onset acute systolic congestive heart failure: Uncertain etiology. Ischemic versus (probably) nonischemic. Started on metoprolol, lisinopril, and spironolactone. Therapy is limited by her low blood pressure. Eventually may switch her to Entresto. Remains decompensated with a gallop rhythm and tachycardia but clinically much improved and appears euvolemic. Chest x-ray show improvement though not complete resolution of CHF. Ferritin and HIV normal. Will DC IV furosemide and start oral furosemide on Saturday. Cardiac catheterization Saturday. Reviewed procedure with the patient and she desires to proceed. Possible discharge Saturday afternoon/evening. (2) Cardiomyopathy: Code(s): I42.9 - Cardiomyopathy, unspecified Status: Acute Assessment and Plan: Uncertain etiology, catheterization tomorrow. (3) Aortic stenosis: Code(s): I35.0 - Nonrheumatic aortic (valve) stenosis Status: Acute Assessment and Plan: Moderate calcification and mild to moderate stenosis by echo. With this degree of left ventricular dysfunction perhaps not much of a gradient can be generated. (4) Hyperlipidemia: Qualifiers: Hyperlipidemia type: unspecified Qualified Code(s): E78.5 - Hyperlipidemia, unspecified Code(s): E78.5 - Hyperlipidemia, unspecified Status: Chronic Assessment and Plan: LDL cholesterol 119. (5) Chest pain: Code(s): R07.9 - Chest pain, unspecified Status: Acute Assessment and Plan: CHF versus is angina. Aspirin 81 mg p.o. daily Cardiac cath on Saturday, if she appears in reasonable shape; otherwise later as OPT. Probably discharge Saturday after the catheterization. Subjective Date/time seen: 07/10/20 11:51 Interval history: Follow-up visit in this 65-year-old lady with congestive heart failure found to have significant dilated cardiomyopathy by echo, EF 15-20%. Echo also demonstrates mild aortic valve stenosis. With a 20 mm gradient but an AURORA 1.2 cm2. 07/08/2020: Patient feels well this morning asymptomatic. Says she slept last night in her bed without any positional dyspnea. Added spironolactone. 07/09/2020: Feeling good, close to normal, able to walk to the bathroom with no shortness of breath or dizziness. No PND orthopnea. Has diuresed 600 cc so far today. Systolic BP running 92 - 108 mmHg. Remains tachycardic with heart rates in the 120s, sinus tachycardia with infrequent PVCs. Date of service 07/10/2020: Feels good, up in her room with no shortness of breath or dizziness. No PND orthopnea. Systolic BP 92-108 mmHg. Chest x-ray as below. Diuresed 800 cc yesterday, 1200 cc so far today. Remains tachycardic with heart rates 115-125 beats per minute, infrequent PVCs. Review of Systems Constitutional: Constitutional: Denies fatigue Eyes: Eyes: Reports no additional eye complaints ENT: Denies epistaxis Cardiovascular: Cardiovascular: Denies chest pain, Denies pedal edema, Denies leg edema, Denies lightheadedness and Denies palpitations Respiratory: Respiratory: Denies cough, Denies dyspnea and Denies dyspnea on exertion Gastrointestinal: Gastrointestinal: Denies abdominal
[2020-07-11] VITALS (26 sets, daily range): BP systolic 97–119; BP diastolic 64–88; PULSE 94–123; RESP 14–33; TEMP 35.6–36.6; O2SAT 92–100
[2020-07-11 05:09] LABS: Anion Gap 6 mmol/L (8-16); Blood Urea Nitrogen 21 mg/dL (7-17); Calcium 8.8 mg/dL (8.4-10.2); Carbon Dioxide 29 mmol/L (22-30); Chloride 102 mmol/L (98-107); Estimated CRCL calculation 57 ml/min; Estimated Glomerular Filt Rate > 60; Glucose 99 mg/dL (65-105); Potassium 4.2 mmol/L (3.4-5.0); Sodium 137 mmol/L (137-145)
[2020-07-11] MEDS: ASPIRIN 81 MG ENTERIC TABLET PO (08:53)
[2020-07-11] MEDS: METOPROLOL TARTRATE 6.25 MG TABLET PO (08:53)
--- NOTE | 2020-07-11 12:39 | WPDMODSED ---
Moderate Sedation Note-Pt Data Patient Data Diagnosis: newly diagnosed cardiomyopathy with left-sided heart failure Present Complaint: exertional and positional dyspnea Procedure to be performed/Plan: left heart catheterization Allergies Allergy/AdvReac Type Severity Reaction Status Date / Time No Known Allergies Allergy Verified 07/06/20 12:03 Home Medications Medication Instructions Recorded Confirmed Type No Home Medications 07/06/20 07/06/20 History Current Medications: Active Medications Acetaminophen (Acetaminophen 325 Mg Tablet) 650 mg PO Q4H PRN PRN Reason: Mild Pain (1-3) Aspirin (Aspirin 81 Mg Enteric Tablet) [facility] [place] Admin: 07/11/20 08:53 Dose: 81 mg Documented by: Enoxaparin Sodium (Enoxaparin 40 Mg/0.4 Ml Syringe) 40 mg SUB-Q DAILY [facility] Last Admin: 07/11/20 08:50 Dose: Not Given Documented by: Furosemide (Furosemide 20 Mg Tablet) 20 mg PO DAILY [facility] Sodium Chloride (Normal Saline Iv) 500 mls @ 100 mls/hr IV CONT .Q5H [facility] Lisinopril (Lisinopril 2.5 Mg Tablet) 2.5 [place] [facility] [place] Admin: 07/10/20 09:00 Dose: 2.5 mg Documented by: Metoprolol Tartrate (Metoprolol Tartrate 6.25 Mg Tablet) 6.25 mg PO Q12HR [facility] Last Admin: 07/11/20 08:53 Dose: 6.25 mg Documented by: Ondansetron HCl (Ondansetron Inj 4 Mg/2 Ml Vial) 4 mg IV PUSH Q6H PRN PRN Reason: Nausea And Vomiting Spironolactone (Spironolactone 25 Mg Tablet) 25 mg PO [facility] Last Admin: 07/10/20 09:00 Dose: 25 mg Documented by: Sedation/Anesthesia: No previous sedation/anesthesia problems (including family history). [facility] Past Medical History Medical History (Updated 07/07/20 @ 17:31 by Kodi Fernando MD) Aortic stenosis Cardiomyopathy Hyperlipidemia Family History Family History (Updated 07/07/20 @ 17:29 by Kodi Fernando MD) Sibling Acute myocardial infarction Social History Social History Smoking status: Never smoker Second hand tobacco smoke exposure: No Alcohol intake: never Substance use: never Substance use type: does not use Gender identity (if verbalized by the patient): Female Spiritual care concerns: No Mod Sed Physical Exam Physical Exam Pre Procedural Exam: Normal: Appearance, Throat, Airway, Lungs, Heart Rhythm, Neuro Exam and Extremities and Variation: Heart Size ( PMI enlarged and laterally displaced) and Heart Rate ( sinus tachycardia) Hours since solid foods: 12 Hours since liquid intake: 12 Internal Medicine - PN: Obj Da Vital Signs Vital Signs: Vital Signs - 24 hr 07/10/20 14:00 07/10/20 15:55 07/10/20 16:00 Temperature 36.1 C L Pulse Rate 109 H 115 H 120 H Respiratory Rate 22 H Blood Pressure 104/62 Pulse Oximetry 100 07/10/20 18:00 07/10/20 20:00 07/10/20 20:32 Temperature 36.6 C Pulse Rate 120 H 121 H Respiratory Rate 16 Blood Pressure 102/82 Pulse Oximetry 96 96 07/10/20 20:58 07/10/20 22:00 07/10/20 23:37 Temperature 36.4 C Pulse Rate 130 H 118 H 117 H Respiratory Rate 20 Blood Pressure 98/69 L Pulse Oximetry 99 07/10/20 23:56 07/11/20 02:00 07/11/20 03:34 Temperature Pulse Rate 108 H 108 H 110 H Respiratory Rate 20 20 Blood Pressure Pulse Oximetry 99 99 07/11/20 04:00 07/11/20 06:00 07/11/20 08:00 Temperature 36.6 C Pulse Rate 117 H 112 H 119 H Respiratory Rate 18 Blood Pressure 103/64 Pulse Oximetry 97 07/11/20 08:41 07/11/20 08:53 07/11/20 10:00 Temperature 35.6 C L Pulse Rate 115 H 116 H 114 H Respiratory Rate 16 Blood Pressure 101/74 Pulse Oximetry 100 Intake/Output Intake/Output: Intake & Output 07/08/20 07/09/20 07/10/20 07/11/20 23:59 23:59 23:59 23:59 Intake Total 590 960 995 Output Total 750 1800 1741 850 Balance -160 -840 -1230 -850 Meds/Results Medications: Active Medications Generic Name Dose Route Start Last Admin Trade Name Freq PRN Reason Stop Dose Admin
--- NOTE | 2020-07-11 13:40 | PC.NURSE ---
Patient to cardiac malthouse laborer via stretcher. Report given to DAYLIN Wade.
--- NOTE | 2020-07-11 14:20 | P.PCNCC_ITS ---
Cardiac Cath Procedure Note Date of procedure:: 07/11/20 Performing physician:: Valdemar Collins MD Indication:: Newly diagnosed cardiomyopathy Brief clinical history:: this is a 65-year-old woman with presenting last week with congestive heart failure found to have very poor left ventricular function by echocardiogram. Her heart failure has been treated and she is now stable enough to undergo angiography to continue her workup and rule out ischemic heart disease. Echocardiogram demonstrates very mild aortic valve stenosis. Left ventricular ejection fraction is very poor at 15%. Procedure Procedure performed:: Coronary angiography Sedation/Medication given:: fentanyl 25 mg Versed 2 mg case start time 1:56 p.m. case end time 2:14 p.m. sedation provided by Brandy Cam RN, trained observer Access site:: right femoral artery Estimated blood loss:: 10-15 cc Procedure note:: patient was brought to the cardiac catheterization lab in the postabsorptive state the right femoral triangle was prepped and draped in the usual fashion. Anesthesia was provided with 1% lidocaine infiltrated locally. Using the modified Seldinger technique the femoral artery was punctured and a 5 Cambodian vascular sheath was placed. Because of the patient's cardiomyopathy and low output the femoral pulse pressure was obviously diminished. Following access a 5 Cambodian FL4 catheter was advanced into the aortic root and the left coronary artery was engaged and injected in multiple projections. After this the right coronary artery was engaged and injected using standard 5 Cambodian JR4 catheter. Following this the procedure was terminated. She was taken to the holding area for manual sheath removal. Because of low cardiac output I did not elect to a deploy a Angio-Seal device. Findings:: Hemodynamics: Central aortic pressure was 126 over 62. There was evidence of mild pulsus alternans. The left main coronary artery is widely patent left anterior descending is a moderate caliber artery extending down to the apex. The LAD and its branches are angiographically unremarkable circumflex is a moderate caliber artery giving rise to the marginal branches. The circumflex is angiographically smooth and unremarkable the right coronary artery is large caliber and dominant to the posterior circulation. The RCA is smooth and angiographically unremarkable. Conclusion:: 1. Right coronary dominant circulation with no evidence of coronary disease 2. cardiomyopathy is a nonischemic process based on these findings Valdemar Collins MD [facility]
--- NOTE | 2020-07-11 16:01 | PM.IMPN ---
Progress Note: A&P Assessment and Plan (1) Acute respiratory failure with hypoxemia: Code(s): J96.01 - Acute respiratory failure with hypoxia Status: Acute Assessment and Plan: The patient has been initiated on Bipap in the ER. Admit to IMU. Wean off of Bipap when possible. Continue oxygen supplementation to maintain pulse ox>95%. Acute respiratory failure appears to be secondary to acute CHF exacerbation. Continue treatment for acute CHF. RT assess and treat. 07/11/20 16:01 The patient has been initiated on Bipap in the ER. Admit to IMU. Wean off of Bipap when possible. Continue oxygen supplementation to maintain pulse ox>95%. Acute respiratory failure appears to be secondary to acute CHF exacerbation. Continue treatment for acute CHF. RT assess and treat. Patient is 65-year-old female who has not seen the physician and several year presented to emergency department with a complaint of shortness of breath and hypoxic patient was placed on BiPAP, CT of the chest showed no pulmonary emboli but showed congestive heart failure with cardiomegaly, patient was diuresed with IV Lasix, currently patient states feeling much better she is off BiPAP, on nasal cannula 4 L oxygen, cardiac echo showed severe systolic dysfunction with ejection fraction of 20% unclear ischemic or nonischemic cardiomyopathy, will consult kier hand further recommendation 07/08 patient with severe systolic dysfunction with ejection fraction of 20% most likely patient acute on chronic systolic congestive heart failure, patient is being diuresed and was seen by Cardiology low-dose metoprolol, lisinopril and spironolactone was added, today patient states feeling much better not a short of breath as when she arrived, kier hand recommending cardiac catheterization once patient is clinically stable to further evaluate her cardiomyopathy ischemic or nonischemic, will have a PT OT evaluate the patient and further recommendation to follow. 07/09 patient remained clinically stable, states feeling much better not as short of breath, being diuresed, will be seen by kier hand possibly have cardiac catheterization on Saturday will continue to monitor and further recommendation to follow. 07/10 patient remained clinically stable, sitting side of the bed, states feeling much better not as short of breath, being diuresed, seen by kier hand possibly will have cardiac catheterization on Saturday will continue to monitor and further recommendation to follow. 07/11 patient remains clinically stable patient is being diuresed, is feeling much better denies any chest pain or shortness of breath, today patient was taken to cardiac cath lab radiology technician and it was essentially normal without any acute coronary disease, will monitor patient overnight will discharge the patient home tomorrow patient be seen by kier hand further recommendation to follow (2) Congestive heart failure: Qualifiers: Heart failure chronicity: acute Heart failure type: unspecified Qualified Code(s): I50.9 - Heart failure, unspecified Code(s): I50.9 - Heart failure, unspecified Status: Acute Assessment and Plan: Newly diagnosed CHF. sodium prudent, fluid restricted diet. Is and Os, daily weights. CHF teaching. Continue IV lasix. Monitor urine output. TSH w/ reflex T4, Echocardiogram in am. (3) Sinus tachycardia: Code(s): R00.0 - Tachycardia, unspecified Status: Acute Assessment and Plan: Likely compensatory from acute respiratory failure. We will continue to monitor on telemetry. We will consider rate controlling medications if the patient sustains HR >120 bpm as this may lead to worsening pulmonary edema. (4) Elevated lactic acid level: Code(s): R79.89 - Other specified abnormal findings of blood chemistry Status: Acute Assessment and Plan: Likely secondary to hypoperfusion from acute CHF. Check reflex lactic acid. monitor acid-base status. (5) Hyp
--- NOTE | 2020-07-11 16:28 | PC.NURSE ---
Patient returned to room following cardiac cath. Report received from DAYLIN Chaparro.
[2020-07-11] MEDS: SODIUM CHLORIDE 0.9% IV 1,000 ML 125 ML IV CONT (17:24)
[2020-07-12] VITALS (10 sets, daily range): BP systolic 107–114; BP diastolic 50–73; PULSE 112–123; RESP 14–18; TEMP 36.3–36.5; O2SAT 99–100
[2020-07-12 05:43] LABS: Anion Gap 8 mmol/L (8-16); Blood Urea Nitrogen 17 mg/dL (7-17); Calcium 8.8 mg/dL (8.4-10.2); Carbon Dioxide 25 mmol/L (22-30); Chloride 105 mmol/L (98-107); Estimated CRCL calculation 59 ml/min; Estimated Glomerular Filt Rate > 60; Glucose 100 mg/dL (65-105); Potassium 4.6 mmol/L (3.4-5.0); Sodium 138 mmol/L (137-145)
[2020-07-12] MEDS: lisinopriL 5 MG TABLET PO (09:39)
[2020-07-12] MEDS: METOPROLOL SUCCINATE EXT REL 25 MG TABCR PO (09:39)
[2020-07-12] MEDS: FUROSEMIDE 20 MG TABLET PO (09:39)
[2020-07-12] MEDS: ASPIRIN 81 MG ENTERIC TABLET PO (09:40)
[2020-07-12] MEDS: SPIRONOLACTONE 25 MG TABLET PO (09:40)
--- NOTE | 2020-07-12 12:28 | PM.PNCARD ---
Progress Note: A&P Assessment and Plan (1) Congestive heart failure: Qualifiers: Heart failure chronicity: acute Heart failure type: unspecified Qualified Code(s): I50.9 - Heart failure, unspecified Code(s): I50.9 - Heart failure, unspecified Status: Acute Assessment and Plan: New onset acute systolic congestive heart failure: Uncertain etiology. Nonischemic etiology, normal coronary anatomy left heart catheterization 07/11/2020. EF 15%. Extensively counseled patient and her employer. Patient is in the [place] on a work visa which expires the end of July. Optimize medical therapy beta-leslee, spironolactone, MOE-inhibitor, furosemide. Increase Toprol XL to 50 mg daily. Will attempt to obtain LifeVest for the patient as an outpatient through [facility] if possible. Discussed at length with the patient and her employer. The outcome of this inquiry remains unknown. Discussed VT/VF and sudden cardiac risk with EF 15% and recommendation for life vest. Patient does not qualify for ICD at this time. Discussed this risk at length. Advised to avoid overly strenuous activity, extremes of temperature. CHF counseling. Monitor daily weight, less than 1500 mg sodium diet daily intake, monitor abdominal fullness/distension, edema orthopnea and/or PND. Exertional dyspnea she reported along with weight gain immediately. Compliance with medications counseling performed extensively. All questions answered to their satisfaction. Patient will follow-up in the office with Dr. Rahman in 2 weeks. Okay for discharge per hospitalist service from cardiac perspective. I made it very clear patient remains at increased risk for sudden cardiac to which they acknowledged understanding. Spent 40 minutes in the care of this patient including time at bedside, chart review with over 50% of the visit counseling CHF, sudden cardiac risk, cardiomyopathy, medical therapy, and LifeVest recommendations as above. (2) Cardiomyopathy: Code(s): I42.9 - Cardiomyopathy, unspecified Status: Acute Assessment and Plan: Nonischemic cardiomyopathy EF 15%, normal coronary anatomy and left heart catheterization. As above. (3) Aortic stenosis: Code(s): I35.0 - Nonrheumatic aortic (valve) stenosis Status: Acute Assessment and Plan: Moderate calcification and mild to moderate stenosis by echo. With this degree of left ventricular dysfunction perhaps not much of a gradient can be generated. No acute issues at this time. (4) Hyperlipidemia: Qualifiers: Hyperlipidemia type: unspecified Qualified Code(s): E78.5 - Hyperlipidemia, unspecified Code(s): E78.5 - Hyperlipidemia, unspecified Status: Chronic Assessment and Plan: LDL cholesterol 119. (5) Chest pain: Code(s): R07.9 - Chest pain, unspecified Status: Acute Assessment and Plan: Normal coronary anatomy. No recurrence. Subjective Date/time seen: Date of service: 07/12/20 12:28 Interval history: Follow-up visit in this 65-year-old lady with congestive heart failure found to have significant dilated cardiomyopathy by echo, EF 15-20%. Echo also demonstrates mild aortic valve stenosis. With a 20 mm gradient but an AURORA 1.2 cm2. Patient feels reasonably well. Sinus tachycardia overnight 110s to 120s. Patient denies dizziness, orthopnea or PND. No edema. Abdomen soft. No near-syncope or syncope. Left heart catheterization normal coronary anatomy nonischemic cardiomyopathy EF 15%. LifeVest ordered for EF 15% sudden cardiac risk, however, unable to obtained as patient is in the [place] a [place] visa and h
--- NOTE | 2020-07-12 15:33 | PM.DS ---
DS: Admitting Diagnosis Admitting Diagnosis Admitting Diagnosis: Chief Complaint: shortness of breath over the past few days DS: Discharge Diagnosis Discharge Diagnosis (1) Acute respiratory failure with hypoxemia: Code(s): J96.01 - Acute respiratory failure with hypoxia Status: Acute Assessment and Plan: The patient has been initiated on Bipap in the ER. Admit to IMU. Wean off of Bipap when possible. Continue oxygen supplementation to maintain pulse ox>95%. Acute respiratory failure appears to be secondary to acute CHF exacerbation. Continue treatment for acute CHF. RT assess and treat. 07/11/20 16:01 The patient has been initiated on Bipap in the ER. Admit to IMU. Wean off of Bipap when possible. Continue oxygen supplementation to maintain pulse ox>95%. Acute respiratory failure appears to be secondary to acute CHF exacerbation. Continue treatment for acute CHF. RT assess and treat. Patient is 65-year-old female who has not seen the physician and several year presented to emergency department with a complaint of shortness of breath and hypoxic patient was placed on BiPAP, CT of the chest showed no pulmonary emboli but showed congestive heart failure with cardiomegaly, patient was diuresed with IV Lasix, currently patient states feeling much better she is off BiPAP, on nasal cannula 4 L oxygen, cardiac echo showed severe systolic dysfunction with ejection fraction of 20% unclear ischemic or nonischemic cardiomyopathy, will consult associate project manager further recommendation 07/08 patient with severe systolic dysfunction with ejection fraction of 20% most likely patient acute on chronic systolic congestive heart failure, patient is being diuresed and was seen by Cardiology low-dose metoprolol, lisinopril and spironolactone was added, today patient states feeling much better not a short of breath as when she arrived, associate project manager recommending cardiac catheterization once patient is clinically stable to further evaluate her cardiomyopathy ischemic or nonischemic, will have a PT OT evaluate the patient and further recommendation to follow. 07/09 patient remained clinically stable, states feeling much better not as short of breath, being diuresed, will be seen by associate project manager possibly have cardiac catheterization on Saturday will continue to monitor and further recommendation to follow. 07/10 patient remained clinically stable, sitting side of the bed, states feeling much better not as short of breath, being diuresed, seen by associate project manager possibly will have cardiac catheterization on Prasad will continue to monitor and further recommendation to follow. 07/11 patient remains clinically stable patient is being diuresed, is feeling much better denies any chest pain or shortness of breath, today patient was taken to cardiac labourers and it was essentially normal without any acute coronary disease, will monitor patient overnight will discharge the patient home tomorrow patient be seen by associate project manager further recommendation to follow (2) Congestive heart failure: Qualifiers: Heart failure chronicity: acute Heart failure type: unspecified Qualified Code(s): I50.9 - Heart failure, unspecified Code(s): I50.9 - Heart failure, unspecified Status: Acute Assessment and Plan: Newly diagnosed CHF. sodium prudent, fluid restricted diet. Is and Os, daily weights. CHF teaching. Continue IV lasix. Monitor urine output. TSH w/ reflex T4, Echocardiogram in am. (3) Sinus tachycardia: Code(s): R00.0 - Tachycardia, unspecified Status: Acute Assessment and Plan: Likely compensatory from acute respiratory failure. We will continue to monitor on telemetry. We will consider rate controlling medications if the patient sustains HR >120 bpm as this may lead to worsening pulmonary edema. (4) Elevated lactic acid level: Code(s): R79.89 - Other specified abnormal findings of blood chemistry Status: Acute
== END 2020-07-12 16:20 | disposition home or self-care (01) | DRG 192 ==
LOC: ANHED 15:18 → ANHICU 15:20 → ANHIMU 07-11 12:46 → ANHICU 07-13 17:32 → ANHIMU 07-13 17:32
PROVIDERS: Emergency Medicine Emergency Medical Services; Family Medicine; Internal Medicine Cardiovascular Disease; Specialist; Admitting Provider Internal Medicine; Emergency Provider Emergency Medicine; Referring Provider Family Medicine; Visit Provider Family Medicine
PROC: 4A023N7 Measurement of Cardiac Sampling and Pressure, Left Heart, Percutaneous Approach (ICD-10-PCS; CPT 93454; principal; 2020-07-11 13:30)
DX: I50.23 Acute on chronic systolic (congestive) heart failure (principal); J96.01 Acute respiratory failure with hypoxia; Z20.822 Contact with and (suspected) exposure to COVID-19; I35.0 Nonrheumatic aortic (valve) stenosis; R00.0 Tachycardia, unspecified; E78.5 Hyperlipidemia, unspecified; I42.0 Dilated cardiomyopathy; R79.89 Other specified abnormal findings of blood chemistry
CPT/HCPCS: 36415; 36600; 71045; 71275; 80048; 80061; 81001; 82375; 82728; 82805; 83050; 83605; 83735; 83880; 84443; 84484; 85025; 85027; 85380; 85610; 85730; 86703; 87040; 93005; 93306; 93454; 96361; 96372; 96374; 96375; 97161; 97165; 99285; A9270; C1887; C1894; C9803; G0378; G0379; G0432; J0131; J0461; J1644; J1650; J1940; J2250; J3010; J7030; Q9967; U0003; U0005

== ENCOUNTER 2020-07-28 12:30 | Outpatient (CLI) | payer MEDICAID, SELFPAY ==
[2020-07-28 13:07] LABS: Anion Gap 8 mmol/L (8-16); Blood Urea Nitrogen 32 mg/dL (7-17); Calcium 9.8 mg/dL (8.4-10.2); Carbon Dioxide 30 mmol/L (22-30); Chloride 99 mmol/L (98-107); Estimated Glomerular Filt Rate > 60; Glucose 102 mg/dL (65-105); Potassium 4.6 mmol/L (3.4-5.0); Sodium 137 mmol/L (137-145)
== END 2020-07-28 12:31 | disposition home or self-care (01) ==
PROVIDERS: Visit Provider Nurse Practitioner Adult Health
DX: I42.8 Other cardiomyopathies (principal)
CPT/HCPCS: 36415; 80048

== ENCOUNTER 2020-09-27 08:33 | Outpatient (CLI) | payer MEDICAID, SELFPAY ==
[2020-09-27 09:01] LABS: Anion Gap 8 mmol/L (8-16); Blood Urea Nitrogen 23 mg/dL (7-17); Carbon Dioxide 28 mmol/L (22-30); Chloride 104 mmol/L (98-107); Estimated Glomerular Filt Rate > 60; Glucose 97 mg/dL (65-105); Potassium 4.4 mmol/L (3.4-5.0); Sodium 140 mmol/L (137-145)
== END 2020-09-27 08:34 | disposition home or self-care (01) ==
PROVIDERS: Visit Provider Nurse Practitioner Adult Health
DX: I42.8 Other cardiomyopathies (principal)
CPT/HCPCS: 36415; 80048

== ENCOUNTER 2020-11-25 16:11 | Emergency (ER) | payer MEDICAID, SELFPAY ==
[2020-11-25 16:20] VITALS: BP 110/59; PULSE 89; RESP 16; TEMP 36.3; O2SAT 100
--- NOTE | 2020-11-25 16:22 | ED.URI ---
HPI - URI/Sore Throat General Chief Complaint: Upper Respiratory Infection Stated Complaint: HEADACHE/SORE THROAT/COUGH Time Seen by Provider: 11/25/20 16:22 Source: patient and RN notes reviewed History of Present Illness HPI Narrative: Patient is a 65-year-old female who presents the urgent care with complaints of sore throat, cough, drainage and headache. Patient states that it started on Saturday and a couple other people in the home have not been feeling well . Patient is uncertain of what she took for her headache but states that it was an orange pill . Patient also states that she took 1 dose of Tessalon Perles that was prescribed by her tile applicator a couple days ago. Patient denies of any fever, nausea, vomiting, chills. States that she has had some intermittent shortness of breath but denies of any wheezing or chest pain. No other acute complaints. No acute distress noted. Patient aware of the plan of care. Some parts of this dictation were generated by voice recognition software and may contain typographical and/or grammatical inaccuracies. Related Data Allergies Allergy/AdvReac Type Severity Reaction Status Date / Time No Known Allergies Allergy Verified 07/06/20 12:03 Review of Systems Review of Systems: Narrative: CONSTITUTIONAL: Denies fever, chills, or sweats. EYES: Denies visual changes, redness, or discharge. ENT: Reports of sore throat and postnasal drainage CARDIOVASCULAR: Denies chest pain, palpitations, or edema. RESPIRATORY: Reports of cough with intermittent dyspnea without wheezing GASTROINTESTINAL: Denies abdominal pain, nausea, vomiting, or diarrhea. GENITOURINARY: Denies dysuria or hematuria. SKIN: Denies rash or itching. MUSCULOSKELETAL: Denies back pain, joint pain, or myalgia. NEUROLOGIC: Denies headache, numbness, or weakness. All other systems reviewed are negative, except as documented in HPI. [facility] Past Medical History Medical History (Updated 11/25/20 @ 16:47 by JO ANN Lopez) Aortic stenosis Cardiomyopathy Hyperlipidemia Family History Family History (Updated 07/07/20 @ 17:29 by Kodi Fernando MD) Sibling Acute myocardial infarction Social History Social History Smoking status: Never smoker Second hand tobacco smoke exposure: No Alcohol intake: never Substance use: never Substance use type: does not use Gender identity (if verbalized by the patient): Female Spiritual care concerns: No Comments At the time of my signature, I reviewed and agree with the nursing past medical, surgical, social, and family history. There is no relevant family history pertinent to the patient complaint. Exam Narrative: Exam Narrative: GENERAL: This is a well-nourished, well-developed patient, in no apparent distress. HEAD: normocephalic, atraumatic. EYES: PERRL. Sclera clear/white. Vision is grossly intact. EARS: External ears normal, auditory canals clear and without drainage, TMs normal without perforation. Hearing grossly intact. NOSE: External nose normal with no obvious nasal discharge, nares without redness, no rhinorrhea. THROAT: Mucous membranes moist, posterior pharynx clear. NECK: Neck supple, non-tender without lymphadenopathy, masses or thyromegaly. CARDIOVASCULAR: Regular rate and rhythm RESPIRATORY: Clear to auscultation. Breath sounds equal bilaterally. No wheezes, rales, or rhonchi. SKIN: warm, intact with no suspicious lesions or rash, good texture and turgor. NEURO: awake, alert, and oriented to person, place and time. There were no obvious focal neurologic abnormalities. EXTREMITIES: No clubbing, cyanosis, or edema. Course Vital Signs Vital signs: Vital Signs Temperature 97.4 F L 11/25/20 16:20 Pulse Rate 89 11/25/20 16:20 Respiratory Rate 16 11/25/20 16:20 Blood Pressure 110/59 L 11/25/20 16:20 Pulse Oximetry 100 11/25/20 16:20 Temperature 97.4 F L 11/25/20 16:20
== END 2020-11-25 16:55 | disposition home or self-care (01) ==
PROVIDERS: Emergency Provider Nurse Practitioner Family
DX: R05 Cough (principal); J06.9 Acute upper respiratory infection, unspecified; I35.0 Nonrheumatic aortic (valve) stenosis; I42.9 Cardiomyopathy, unspecified; E78.5 Hyperlipidemia, unspecified
CPT/HCPCS: 87081; 87880; 99213; G0463